=== PATIENT | female | born 1985 | race Asian ===

== ENCOUNTER 2020-08-14 16:31 | Outpatient (CLI) | payer OTHER, SELFPAY | END 2020-08-14 16:32 | disposition home or self-care (01) | LOC: ANHCOVIDVC 16:31 | PROVIDERS: PCP Internal Medicine | DX: Z23 Encounter for immunization (principal) | CPT/HCPCS: 0001A; 91300 ==

== ENCOUNTER 2020-09-04 17:22 | Outpatient (CLI) | payer OTHER, SELFPAY | END 2020-09-04 17:23 | disposition home or self-care (01) | LOC: ANHCOVIDVC 17:22 | PROVIDERS: PCP Internal Medicine | DX: Z23 Encounter for immunization (principal) | CPT/HCPCS: 0002A; 91300 ==